=== PATIENT | male | born 1945 | race Caucasian/White ===

== ENCOUNTER 2018-07-25 12:17 | Day surgery (SDC) | payer MEDICARE ==
[~2018-07-25] VITALS: Ht 188 cm; Wt 95.0 kg
[~2018-07-25 12:17] MED LIST: LOSA25 PO
--- NOTE | 2018-07-25 16:05 | NUR ---
07/25/18 [id number] Hank Del Cid LATE ENTRY-PATIENT STATES HE IS READY TO GO HOME. DENIES PAIN, N/V AT THIS TIME VSS.
== END 2018-07-25 15:52 | disposition home or self-care (01) ==
LOC: ORSCSDS 12:17
PROVIDERS: Surgery
PROC: 0KBF0ZX Excision of Right Trunk Muscle, Open Approach, Diagnostic (ICD-10-PCS; principal; 2018-07-25 13:45)
DX: R22.2 Localized swelling, mass and lump, trunk (principal); D17.1 Benign lipomatous neoplasm of skin and subcutaneous tissue of trunk; I10 Essential (primary) hypertension; Z79.899 Other long term (current) drug therapy
CPT/HCPCS: 88304; J2250; J3010; J7120

== ENCOUNTER 2018-08-22 11:45 | Day surgery (SDC) | payer MEDICARE ==
[~2018-08-22] VITALS: Ht 188 cm; Wt 93.8 kg
== END 2018-08-22 15:40 | disposition home or self-care (01) ==
LOC: ORSCSDS 11:45
PROVIDERS: Surgery
PROC: 0JB70ZZ Excision of Back Subcutaneous Tissue and Fascia, Open Approach (ICD-10-PCS; principal; 2018-08-22 13:15)
DX: D17.1 Benign lipomatous neoplasm of skin and subcutaneous tissue of trunk (principal); I10 Essential (primary) hypertension; F17.210 Nicotine dependence, cigarettes, uncomplicated; Z79.899 Other long term (current) drug therapy
CPT/HCPCS: 88304; J0690; J2001; J2704; J7120